=== PATIENT | female | born 1990 | race African-American/Black ===

== ENCOUNTER 2017-02-21 00:39 | Emergency (ER) | payer BC, OTHER | END 2017-02-21 01:03 | disposition home or self-care (01) | LOC: ERS 00:39 | DX: H66.92 Otitis media, unspecified, left ear (principal); I10 Essential (primary) hypertension; J45.909 Unspecified asthma, uncomplicated | CPT/HCPCS: 99282 ==

== ENCOUNTER 2019-03-24 12:43 | Emergency (ER) | payer BC ==
[2019-03-24] MEDS ORDERED: Acetaminophen 500 MG TAB ONE (13:34)
[2019-03-24 17:45] LABS: #Basophils 0.1 thou/uL (0.0-0.2); #Eosinphils 0.1 thou/uL (0.0-0.7); #Lymphocytes 0.6 thou/uL (1.20-3.40); #Monocytes 0.5 thou/uL (0.11-0.59); #Neutrophils 3.3 thou/uL (1.40-6.50); %Basophils 1.3 % (0.0-1.0); %Eosinophils 1.7 % (0.0-10.0); %Lymphocytes 12.2 % (21.0-51.0); %Monocytes 11.3 % (0.0-10.0); %Neutrophils 73.6 % (42.0-75.0); Mean Corpuscular HGB CONC 33.5 g/dL (32.0-36.0); Mean Corpuscular Hemoglobin 25.6 pg (27.0-31.0); Mean Corpuscular Volume 76.6 fL (78.0-98.0); Mean Platelet Volume 9.6 fL (7.4-10.4); Platelet Count 143 thou/uL (130-400); RBC Distribution Width 14.8 % (11.5-14.5); White Blood Cell (WBC) Count 4.5 thou/uL (4.8-10.8)
[2019-03-24 17:47] LABS: Bacteria/HPF 1+ HPF (None Seen); Bilirubin Negative (Negative); Clarity Clear (Clear); Glucose, Urine (Dipstick) Normal (Negative); Leukocyte 25 Leu/uL (Negative); Nitrite Negative (Negative); Protein, Urine (Dipstick) 300 mg/dL (Neg-Trace); Squamous Epithelial 0-3 HPF (0-3); Urobilinogen Normal mg/dL (Less than 2); WBC/HPF 0-3 HPF (0-3)
[2019-03-24 17:49] LABS: ALT (SGPT) 12 U/L (8-55); AST (SGOT) 26 U/L (5-34); Albumin 2.6 g/dL (3.5-5.0); Alkaline Phosphatase 66 U/L (40-110); Anion Gap 13 mmol/L (10-20); BUN (Urea Nitrogen) Less than 4 mg/dL (7.0-18.7); Bilirubin, Total 0.2 mg/dL (0.2-1.2); Calc. Creatinine Clearance 0 mL/min (70-130); Calcium 7.7 mg/dL (7.8-10.44); Carbon Dioxide 21 mmol/L (22-29); Chloride 106 mmol/L (98-107); Estimated GFR-MDRD Greater than 90; Globulin 3.1 g/dL (2.4-3.5); Glucose 82 mg/dL (70-105); Potassium 3.4 mmol/L (3.5-5.1); Protein, Total 5.7 g/dL (6.0-8.3); Sodium 137 mmol/L (136-145)
[2019-03-24 17:56] LABS: Blood, Urine 1+ (Negative)
[2019-03-24] MEDS ORDERED: Levalbuterol HCl 0.63 MG/3 ML NEB NEB SCH (20:30)
[2019-03-24] MEDS ORDERED: hydrALAZINE 20 MG/ML VIAL SLOW IVP PRN (20:34)
== END 2019-03-24 19:02 | disposition home or self-care (01) ==
LOC: ERS 12:43
DX: O99.513 Diseases of the respiratory system complicating pregnancy, third trimester (principal); J06.9 Acute upper respiratory infection, unspecified; Z3A.32 32 weeks gestation of pregnancy; J45.909 Unspecified asthma, uncomplicated
CPT/HCPCS: 80053; 81003; 81015; 85025; 87804; 96360; J7614

== ENCOUNTER → 2019-03-24 | Day surgery (SDC) | payer BC, OTHER ==
[~2019-03-24] MED LIST: FLU VACC QS2019-20(6MOS UP)/PF 60 MCG/0.5 ML SYRINGE IM ONE; Levalbuterol HCl 0.63 MG/3 ML NEB NEB SCH; hydrALAZINE 20 MG/ML VIAL SLOW IVP PRN
--- NOTE | 2019-03-24 22:10 | RAD ---
XR Chest Pa Lat STANDARD HISTORY: Shortness of breath COMPARISON: None. FINDINGS: Heart size and mediastinum are within normal limits. The lungs are clear of infiltrates. No significant bony findings. IMPRESSION: No active intrathoracic disease.
[2019-03-24 22:19] VITALS: BP 145/77; TEMP 99.9; BMI 32.3
--- NOTE | 2019-03-25 08:45 | PRG ---
DATE OF SERVICE: 03/24/2019 PRIMARY OB: Dr. Russell Erickson. CHIEF COMPLAINT: Elevated blood pressure, proteinuria, and tachycardia. HISTORY OF PRESENT ILLNESS: The patient is a 29-year-old, G8, P4 female with an intrauterine at 32 weeks and a day, presenting to the emergency room with complaints of congestion, headache, and sore throat for 3 days with vomiting last week. After evaluation there, the patient was noted to have tachycardia, intermittent headache, congestion, and sore throat, and noted to have an elevated temperature at 99.6 and pulse in the 120s. The patient was diagnosed with an upper respiratory infection and sent to Labor and Delivery for monitoring. Upon arrival, the patient again reported that she was not feeling well, had sore throat, and congestion and cough that she has been treating with [id number] medications. For the last few days, the patient also reports that she had been given antibiotics in the last few weeks for strep throat that she works in a cold environment at [employer]. During her stay, she reports that she does have history of asthma and has some difficulty breathing at times since getting sick. The ER physician had prescribed her albuterol downstairs and gave her a liter of fluid. The patient denies chest pain. She denies nausea, vomiting, diarrhea, constipation, hip problems, knee problems, muscle weakness. The patient reports she is determined to go to work tomorrow. The patient denies any drug use. Denies any caffeine consumption of any kind. Denies coffee or sodas or other sources of caffeine or stimulants. PAST MEDICAL HISTORY: Asthma and suspected chronic hypertension. PAST SURGICAL HISTORY: Negative. SOCIAL HISTORY: Denies drug, alcohol, or tobacco use. ALLERGIES: NONE. CURRENT MEDICATIONS: Just newly prescribed albuterol inhaler and vitamins. OB LABS: Unavailable at the time of dictation. REVIEW OF SYSTEMS: Per HPI. PHYSICAL EXAMINATION: VITAL SIGNS: Initial blood pressure is 145/77, her stay with us 3 hours repeat blood pressures 133/87, 126/66. 140/80 and 135/75 were her most recent blood pressure. The patient had a temperature of 101.1 during her stay. Remained tachycardic in the 120s, down to the one teens and up to the lower 130s, saturating 99% to 100% on room air. GENERAL: The patient initially appeared to have to be somewhat lethargic, though alert and oriented. Cooperative and pleasant to interact with. HEAD: Normocephalic and atraumatic. LUNGS: Had some wheezing and some coarse breath sounds. HEART: Tachycardic, but regular rhythm. ABDOMEN: Soft. No right upper quadrant tenderness. EXTREMITIES: Nontender. They had minimal edema. Symmetrical. The fetus had a baseline in the 150s with moderate long-term variability, positive accelerations, no decelerations. Tocometer free of contractions. LAB WORK: White count of 4.5, hemoglobin 10, hematocrit 29.9, platelets 143,000. Sodium 137, potassium 3.4, BUN of less than 4, creatinine of 0.56, calcium of 7.7. AST is 26, ALT of 12, albumin of 2.6. Urine specific gravity 1.009 with 300 of protein, 20 of ketones, 1+ blood, 4 to 6 rbc's, 1+ bacteria. Influenza type A and B are negative. Chest x-ray showed a heart size and mediastinum within normal limits. Lungs are clear of infiltrates. No significant bony findings and no active intrathoracic disease. ASSESSMENT AND PLAN: The patient is a 29-year-old female with what appears to be a viral respiratory infection exacerbated by underlying asthma. During her stay here, the patient was given a Xopenex treatment after which the patient reports that she is able to breathe more easily. With her being febrile and , her tachycardia is less concerning. She has a suppressed white count also suggesting a viral infection of some kind. The patient has been given instructions to seek medical attention should she experience worsening shortness of breath or chest pain. I have contacted her primary OB, Dr. Erickson, who has shared that her proteinuria and elevated blood pressures have been present since before 20 weeks and suspect that she has baseline proteinuria with chronic hypertension. Her stay here between the ER and the [employer] Labor and Delivery visit has been in excess of 8 hours and reviewing her course of vital signs, nothing appeared to worsen over that time. The patient is comfortable going home. In fact, she was comfortable walking out the door. She has an appointment to see her primary OB Dr. Russell Erickson tomorrow 4:30, who can re-evaluate her situation. The patient is expressed determination to go to work. We had recommended that she not given her fever and body aches and upper respiratory infection, fetus has a category 1 tracing and the patient has been given precautions. Job ID: [id number]
== END ==
LOC: L&D/OP 19:20
PROVIDERS: ATTEND Obstetrics & Gynecology
DX: O99.89 Other specified diseases and conditions complicating pregnancy, childbirth and the puerperium (principal); R03.0 Elevated blood-pressure reading, without diagnosis of hypertension; O99.513 Diseases of the respiratory system complicating pregnancy, third trimester; J45.909 Unspecified asthma, uncomplicated; O12.13 Gestational proteinuria, third trimester; O99.213 Obesity complicating pregnancy, third trimester; E66.9 Obesity, unspecified; O09.293 Supervision of pregnancy with other poor reproductive or obstetric history, third trimester; Z3A.32 32 weeks gestation of pregnancy
CPT/HCPCS: 71046; 94640; 99282; J7614

== ENCOUNTER 2019-04-25 16:11 | Day surgery (SDC) | payer BC, OTHER ==
[2019-04-25 16:49] VITALS: BMI 33.8
[2019-04-25] MEDS ORDERED: hydrALAZINE 20 MG/ML VIAL SLOW IVP PRN (16:52)
--- NOTE | 2019-04-25 17:04 | PDOC.LDHP ---
Labor and Delivery H&P Chief complaint: other (4/8 BPP in clinic with diagnosis of Chronic Hypertension and Chronic (it seems) proteinurea. No evidence that preeclamsia has existed upto this point, with normal blooed work previously, and no otehr severe features today.) HPI: 29 y/o at 36 weeks and 4 days, with 4/8 BPP in clinic. She presents to L&D for further evaluation for well being and to re-investigate for any laboratory evidence of preeclampsia. Grav: 8 Para: 4 Current complications: gestational hypertension, other (Chronic Proteinurea) Abnormal US findings: Yes (4/8 BPP today in clinic, but 8/8 on repeat exam in hospital. NL ЕКАТЕРИНА.) Current medications: pre-emery vitamins Allergies/Adverse Reactions: Allergies Allergy/AdvReac Type Severity Reaction Status Date / Time No Known Allergies Allergy Verified 04/25/19 16:50 - Physical Exam Vital signs reviewed and normal: yes General: NAD Heart: RRR Lungs: CTAB Abdomen: gravid Extremeties: no edema FHT: category 1 - Assessment GHTN, now with 8/8 BPP and NL heart tracing. Neg Preeclamsia blood work- up. Urine protein to creatinine ration is high as expected, explained by chronic proteinurea that has been monitored and evident for several months no without significant change or progression. At this time, the best explanation of the clinical picture is CHTN, without superimposed preeclampsia. Delivery indicated at 38 weeks per ACOG and already scheduled.
--- NOTE | 2019-04-25 17:24 | ULT ---
Exam: NONSTRESS BIOPHYSICAL PROFILE: HISTORY: Poor status 36 weeks . Chronic hypertension. TECHNIQUE: Nonstress biophysical profile was performed. FINDINGS: Limited evaluation of the cervix due to shadowing. Vertex presentation Posterior placenta. The presence or absence of previa cannot be evaluated due to shadowing in the low er uterine segment. heart tones: 136 bpm Amniotic fluid index 10.7 cm Nonstress biophysical profile: tone 2 breathing 2 movement 2 Amniotic fluid 2 Total score 8 out of 8 IMPRESSION: Nonstress biophysical profile with a total score of 8 out of 8. Transcribed Date/Time: 04/25/2019 6:20 PM
[2019-04-25 18:03] LABS: #Basophils 0.1 thou/uL (0.0-0.2); #Eosinphils 0.3 thou/uL (0.0-0.7); #Lymphocytes 1.6 thou/uL (1.20-3.40); #Monocytes 0.7 thou/uL (0.11-0.59); #Neutrophils 5.5 thou/uL (1.40-6.50); %Basophils 1.2 % (0.0-1.0); %Eosinophils 3.8 % (0.0-10.0); %Lymphocytes 19.1 % (21.0-51.0); %Monocytes 8.4 % (0.0-10.0); %Neutrophils 67.5 % (42.0-75.0); Hemoglobin 10.4 g/dL (12.0-16.0); Mean Corpuscular HGB CONC 32.2 g/dL (32.0-36.0); Mean Corpuscular Hemoglobin 24.6 pg (27.0-31.0); Mean Corpuscular Volume 76.6 fL (78.0-98.0); Mean Platelet Volume 9.1 fL (7.4-10.4); Platelet Count 177 thou/uL (130-400); RBC Distribution Width 16.9 % (11.5-14.5); Red Blood Cell (RBC) Count 4.23 mill/uL (4.20-5.40); White Blood Cell (WBC) Count 8.1 thou/uL (4.8-10.8)
[2019-04-25 18:29] LABS: Creatinine, Urine 64.72 mg/dL (47-110)
[2019-04-25 18:42] LABS: ALT (SGPT) Less than 7 U/L (8-55); Albumin 2.8 g/dL (3.5-5.0); Alkaline Phosphatase 105 U/L (40-110); Calc. Creatinine Clearance 209 mL/min (70-130); Chloride 105 mmol/L (98-107); Estimated GFR-MDRD Greater than 90; Globulin 3.5 g/dL (2.4-3.5); Potassium 3.5 mmol/L (3.5-5.1); Protein, Total 6.3 g/dL (6.0-8.3); Sodium 137 mmol/L (136-145)
[2019-04-25 18:51] LABS: AST (SGOT) 15 U/L (5-34); Anion Gap 10 mmol/L (10-20); BUN (Urea Nitrogen) 5 mg/dL (7.0-18.7); Bilirubin, Total 0.3 mg/dL (0.2-1.2); Calcium 8.5 mg/dL (7.8-10.44); Carbon Dioxide 25 mmol/L (22-29); Glucose 62 mg/dL (70-105)
[2019-04-26] MEDS ORDERED: FLU VACC QS2019-20(6MOS UP)/PF 60 MCG/0.5 ML SYRINGE IM ONE (09:00)
== END 2019-04-25 19:30 | disposition home or self-care (01) ==
LOC: L&D/OP 16:11
PROVIDERS: ATTEND Obstetrics & Gynecology
DX: O10.913 Unspecified pre-existing hypertension complicating pregnancy, third trimester (principal); Z3A.36 36 weeks gestation of pregnancy
CPT/HCPCS: 36415; 76819; 80053; 82570; 84156; 85025; 99284

== ENCOUNTER 2019-05-06 19:15 | Inpatient (IN) | payer BC, OTHER ==
--- NOTE | 2019-05-06 18:27 | PDOC.LDHP ---
Labor and Delivery H&P Chief complaint: scheduled induction HPI: 29 y/o G8 P 4034 at 38 and 1/7 weeks presents for term medical induction of labor for CHTN and chronic Proteinurea. Current gestational age (weeks): 38 Due date: 05/19/19 Grav: 8 Para: 4 Current complications: hypertension, other (Proteinurea) Abnormal US findings: No Current medications: pre-emery vitamins Allergies/Adverse Reactions: Allergies Allergy/AdvReac Type Severity Reaction Status Date / Time No Known Allergies Allergy Verified 04/25/19 16:50 Social history: none - Physical Exam Vital signs reviewed and normal: yes General: NAD Heart: RRR Lungs: CTAB Abdomen: gravid Extremeties: no edema FHT: category 1 - Assessment L&D Assessment: medically indicated induction - Plan Plan: admit to L&D, cervical ripening
[~2019-05-06 19:15] MED LIST changes: +Acetaminophen 500 MG TAB PO PRN; +Butorphanol Tartrate 1 MG/ML VIAL SLOW IVP PRN; +Carboprost 250 MCG/ML AMP IM PRN; +Diphenoxylate HCl/Atropine Tablet PO PRN; -FLU VACC QS2019-20(6MOS UP)/PF 60 MCG/0.5 ML SYRINGE IM ONE; +HYDROcodone/Acetaminophen 5/325 mg Tablet PO PRN; +Ibuprofen 800 MG TAB PO PRN; -Levalbuterol HCl 0.63 MG/3 ML NEB NEB SCH; +Lidocaine 1% (PF) 30 ML VIAL SC PRN; +Misoprostol 200 MCG TAB PR PRN; +NS / Oxytocin 40 units/1000ml 1,000 ML IV PRN; +NS w/ Oxytocin 10 units 500 ML IV SCH; +Ondansetron PF 4 MG/2 ML Vial IVP PRN; +Penicillin G Potassium 5 MILL.UNITS in Sodium Chloride 0.9% 100 ML IVPB SCH; +Promethazine HCl 25 MG/ML VIAL IM PRN
[2019-05-06 22:39] VITALS: BMI 33.0
[2019-05-06] MEDS: Lactated Ringer's 1,000 ML IV SCH (23:08)
[2019-05-06] MEDS: Misoprostol 100 MCG TAB VAG SCH ×2 (23:09→23:48)
[2019-05-06 23:11] LABS: Hemoglobin 9.7 g/dL (12.0-16.0); Mean Corpuscular HGB CONC 32.7 g/dL (32.0-36.0); Mean Corpuscular Hemoglobin 24.7 pg (27.0-31.0); Mean Corpuscular Volume 75.6 fL (78.0-98.0); Mean Platelet Volume 8.3 fL (7.4-10.4); Platelet Count 254 thou/uL (130-400); RBC Distribution Width 16.6 % (11.5-14.5); Red Blood Cell (RBC) Count 3.94 mill/uL (4.20-5.40); White Blood Cell (WBC) Count 8.5 thou/uL (4.8-10.8)
[2019-05-06 23:33] LABS: ALT (SGPT) 7 U/L (8-55); AST (SGOT) 14 U/L (5-34); Albumin 2.8 g/dL (3.5-5.0); Alkaline Phosphatase 107 U/L (40-110); Anion Gap 9 mmol/L (10-20); BUN (Urea Nitrogen) 5 mg/dL (7.0-18.7); Bilirubin, Total 0.3 mg/dL (0.2-1.2); Calc. Creatinine Clearance 204 mL/min (70-130); Calcium 8.3 mg/dL (7.8-10.44); Carbon Dioxide 27 mmol/L (22-29); Chloride 105 mmol/L (98-107); Estimated GFR-MDRD Greater than 90; Globulin 2.9 g/dL (2.4-3.5); Glucose 77 mg/dL (70-105); Potassium 3.9 mmol/L (3.5-5.1); Protein, Total 5.7 g/dL (6.0-8.3); Sodium 137 mmol/L (136-145)
[2019-05-06 23:46] LABS: Syphilis Antibody Nonreactive (Nonreactive); Syphilis Antibody Index 0.03 S/CO (<1.00 Non-Reactive)
[2019-05-06] MEDS: NS w/ Oxytocin 10 units 500 ML IV SCH (23:48)
[2019-05-06] MEDS: Penicillin G 2.5 MILL.units 2.5 MILL.UNITS in Premix Bag 1 BAG IVPB SCH (23:48)
[2019-05-07 00:01] LABS: HBSAg Index 0.19 S/CO (0-0.99); Hep B Surf Ag Non-Reactive S/CO (NonReactive)
[2019-05-07] MEDS: Penicillin G 2.5 MILL.units 2.5 MILL.UNITS in Premix Bag 1 BAG IVPB SCH ×3 (03:01→11:23)
[2019-05-07] MEDS: Misoprostol 100 MCG TAB VAG SCH ×3 (03:01→19:18)
[2019-05-07] MEDS: Lactated Ringer's 1,000 ML IV SCH ×2 (11:21→19:18)
[2019-05-07] MEDS: NS w/ Oxytocin 10 units 500 ML IV SCH (11:22)
[2019-05-07] MEDS ORDERED: Tranexamic Acid 1,000 MG in Sodium Chloride 0.9% 100 ML IVP SCH ×2 (13:00→14:15)
[2019-05-07] MEDS: NS / Oxytocin 40 units/1000ml 1,000 ML IV SCH ×2 (13:05→16:00)
[2019-05-07] MEDS ORDERED: Tranexamic Acid 1,000 MG/10 ML VIAL ONE ×2 (13:29→13:58)
[2019-05-07] MEDS ORDERED: Milk Of Magnesia 30 ML UDCUP PO PRN (13:54)
[2019-05-07] MEDS ORDERED: Benzocaine-Menthol 82.5 ML CAN TOP PRN (13:54)
[2019-05-07] MEDS ORDERED: Bisacodyl 10 MG SUPP PR PRN (13:54)
[2019-05-07] MEDS ORDERED: Lanolin Ointment 7 GM TUBE TOP PRN (13:54)
[2019-05-07] MEDS ORDERED: diphenhydrAMINE 25 MG CAP PO PRN (13:54)
[2019-05-07] MEDS ORDERED: Varicella virus, LIVE 0.5 ML VIAL SC ONE (13:54)
[2019-05-07] MEDS ORDERED: HYDROcodone/Acetaminophen 5/325 mg Tablet PO PRN (13:54)
[2019-05-07] MEDS ORDERED: Zolpidem Tartrate 5 MG TAB PO PRN (13:54)
[2019-05-07] MEDS ORDERED: Preparation H Ointment 28 GM TUBE PR PRN (13:54)
[2019-05-07] MEDS ORDERED: Promethazine HCl 25 MG/ML VIAL IM PRN (13:54)
[2019-05-07] MEDS ORDERED: hydrALAZINE 20 MG/ML VIAL SLOW IVP PRN (13:54)
[2019-05-07] MEDS ORDERED: Ondansetron PF 4 MG/2 ML Vial IVP PRN (13:54)
[2019-05-07] MEDS ORDERED: Measles/Mumps/Rubella 10 MCG/0.5 ML VIAL SC ONE (13:54)
[2019-05-07] MEDS ORDERED: Misoprostol 200 MCG TAB ONE (14:12)
[2019-05-07] MEDS ORDERED: Misoprostol 200 MCG TAB PO SCH (14:12)
[2019-05-07] MEDS ORDERED: Butorphanol Tartrate 1 MG/ML VIAL SLOW IVP SCH (14:13)
[2019-05-07] MEDS ORDERED: Butorphanol Tartrate 1 MG/ML VIAL ONE (14:14)
[2019-05-07] MEDS: HYDROcodone/Acetaminophen 5/325 mg Tablet PO PRN ×2 (15:11→19:41)
[2019-05-07 16:18] LABS: #Basophils 0.1 thou/uL (0.0-0.2); #Eosinphils 0.1 thou/uL (0.0-0.7); #Monocytes 0.6 thou/uL (0.11-0.59); #Neutrophils 11.2 thou/uL (1.40-6.50); %Basophils 0.6 % (0.0-1.0); %Eosinophils 0.6 % (0.0-10.0); %Monocytes 4.3 % (0.0-10.0); %Neutrophils 86.5 % (42.0-75.0); Hemoglobin 9.6 g/dL (12.0-16.0); Mean Corpuscular HGB CONC 32.2 g/dL (32.0-36.0); Mean Corpuscular Hemoglobin 24.3 pg (27.0-31.0); Mean Corpuscular Volume 75.7 fL (78.0-98.0); Mean Platelet Volume 8.5 fL (7.4-10.4); Platelet Count 233 thou/uL (130-400); RBC Distribution Width 16.4 % (11.5-14.5); Red Blood Cell (RBC) Count 3.93 mill/uL (4.20-5.40); White Blood Cell (WBC) Count 12.9 thou/uL (4.8-10.8)
[2019-05-07] MEDS: Ibuprofen 800 MG TAB PO SCH ×2 (17:33→20:51)
[2019-05-07] MEDS: Ferrous Sulfate 325 MG TAB PO SCH (19:17)
[2019-05-07] MEDS: Docusate Calcium (SURFAK) 240 MG CAP PO SCH (20:51)
[2019-05-07] MEDS: Adacel (T-DAP) 0.5 ML SYRINGE IM ONE (21:31)
[2019-05-08] MEDS: Ibuprofen 800 MG TAB PO SCH ×2 (05:12→13:57)
[2019-05-08] MEDS: Docusate Calcium (SURFAK) 240 MG CAP PO SCH (07:42)
[2019-05-08] MEDS: Ferrous Sulfate 325 MG TAB PO SCH (07:42)
[2019-05-08] MEDS: HYDROcodone/Acetaminophen 5/325 mg Tablet PO PRN (07:43)
[2019-05-08 08:39] LABS: Mean Corpuscular HGB CONC 32.8 g/dL (32.0-36.0); Mean Platelet Volume 7.7 fL (7.4-10.4); Platelet Count 233 thou/uL (130-400); RBC Distribution Width 16.6 % (11.5-14.5); Red Blood Cell (RBC) Count 3.59 mill/uL (4.20-5.40); White Blood Cell (WBC) Count 10.1 thou/uL (4.8-10.8)
[2019-05-08] MEDS ORDERED: Prenatal Vitamin 1 TAB PO SCH (09:00)
[2019-05-08 11:43] VITALS: TEMP 98.8
[2019-05-08 12:49] VITALS: BP 133/83
--- NOTE | 2019-05-08 13:46 | PDOC.PP ---
Post Progress Note Post Day #: 1 PO intake tolerated: yes Flatus: yes Ambulation: yes Vital Signs (12 hours) Temp Pulse Resp BP Pulse Ox 05/08/19 12:45 74 20 133/83 05/08/19 11:30 98.8 F 94 18 157/94 H 05/08/19 07:35 98.0 F 79 20 136/97 H 95 05/08/19 05:10 98.9 F 86 16 143/65 H Weight Weight 211 lb - Physical Examination General: NAD Cardiovascular: no m/r/g, RRR Respiratory: clear to auscultation bilaterally Abdominal: + bowel sounds, lochia, no distention Extremities: negative homans (B) Skin: CS incision dry & intact, no rash Neurological: no gross focal deficits Psychiatric: A&Ox3, normal affect Result Diagrams: 05/08/19 08:22 05/06/19 22:59 Additional Labs: Post Labs Blood Type AB POSITIVE 05/06/19 23:00 Hep Bs Antigen Non-Reactive S/CO (NonReactive) 05/06/19 22:59
[2019-05-08] MEDS: Adacel (T-DAP) 0.5 ML SYRINGE IM ONE (14:51)
== END 2019-05-08 16:40 | disposition home or self-care (01) | DRG 807 ==
LOC: L&D 21:53 → 3SW 05-07 19:27
PROVIDERS: ADMIT Obstetrics & Gynecology; ATTEND Obstetrics & Gynecology
PROC: 10E0XZZ Delivery of Products of Conception, External Approach (ICD-10-PCS; principal; 2019-05-06)
PROC: 3E0P7VZ Introduction of Hormone into Female Reproductive, Via Natural or Artificial Opening (ICD-10-PCS; 2019-05-06)
PROC: 3E033VJ Introduction of Other Hormone into Peripheral Vein, Percutaneous Approach (ICD-10-PCS; 2019-05-06)
PROC: 3E0234Z Introduction of Serum, Toxoid and Vaccine into Muscle, Percutaneous Approach (ICD-10-PCS; 2019-05-06)
DX: O13.4 Gestational [pregnancy-induced] hypertension without significant proteinuria, complicating childbirth (principal); Z37.0 Single live birth; Z3A.38 38 weeks gestation of pregnancy; Z23 Encounter for immunization
CPT/HCPCS: 36415; 36416; 80053; 85025; 85027; 86780; 86850; 86900; 86901; 87340; 90715; J0595; J2540; J2590; J3490

== ENCOUNTER 2019-11-01 07:54 | Day surgery (SDC) | payer BC, OTHER ==
[2019-11-01 08:12] LABS: INR-International Normal Ratio 0.9; Prothrombin Time 11.9 sec (12.0-14.7)
[2019-11-01 09:19] VITALS: BMI 28.6
[2019-11-01 09:24] VITALS: BP 119/89; TEMP 98.3
--- NOTE | 2019-11-01 13:32 | CT ---
CT-guided renal biopsy random: 11/01/2019 HISTORY: 29-year-old female with proteinuria. TECHNIQUE: Signed informed consent obtained. Patient placed prone on CT table. Procedure performed under step CT guidance. Right renal lower pole selected as target. Overlying right flank skin prepared and draped in usual sterile fashion. 25-gauge needle used to apply buffered lidocaine superficially. 17-g auge introducer needle advanced to junction between right posterior lateral abdominal wall musculature and posterior paraspinal musculature. Buffered lidocaine applied into this region through the introducer needle. Introducer needle further advanced to posterior aspect of left perirenal space. Additional buffered lidocaine applied here. 18-gauge biopsy needle advanced in coaxial fashion through the introducer needle. Biopsy gun fired, yielding a approximately 1.3 cm renal core tissue sample, which was given to Dr. Oro of pathology, who performed a preliminary light microscopy curly lysis. Some glomeruli visualized. Another 18-gauge pass with biopsy needle performed, and this second tissue sample was placed directly into saline. Introducer needle removed. Abdomen scanned with patient supine. [address] abdomen performed. Patient tolerated procedure well. No complications. FINDINGS: Step CT image demonstrates introducer needle tip at posterior surface of the lower pole of left kidne y. Adjacent fat stranding around the tip of needle represents injected lidocaine. Both the immediate and delayed post procedure images demonstrate no hemorrhage at all. IMPRESSION: Technically successful CT-guided random biopsy of left kidney yielding 18-gauge 1.3 cm core tissue sa mples x2.
== END 2019-11-01 13:40 | disposition home or self-care (01) ==
LOC: CT 07:54
PROVIDERS: ATTEND Internal Medicine Nephrology
PROC: BT22ZZZ Computerized Tomography (CT Scan) of Left Kidney (ICD-10-PCS; principal; 2019-11-01)
PROC: 0TB13ZX Excision of Left Kidney, Percutaneous Approach, Diagnostic (ICD-10-PCS; principal; 2019-11-01)
DX: N06.1 Isolated proteinuria with focal and segmental glomerular lesions (principal); N18.1 Chronic kidney disease, stage 1; I15.9 Secondary hypertension, unspecified; E55.9 Vitamin D deficiency, unspecified; J45.909 Unspecified asthma, uncomplicated; Z79.899 Other long term (current) drug therapy
CPT/HCPCS: 50200; 77002; 85610; 88329

== ENCOUNTER 2022-07-28 14:31 | Emergency (ER) | payer BC, OTHER ==
[2022-07-28 16:04] LABS: #Eosinphils 0.4 thou/uL (0.0-0.7); #Lymphocytes 1.8 thou/uL (1.20-3.40); #Monocytes 0.4 thou/uL (0.11-0.59); #Neutrophils 3.4 thou/uL (1.40-6.50); %Basophils 0.6 % (0.0-1.0); %Eosinophils 7.5 % (0.0-10.0); %Lymphocytes 29.1 % (21.0-51.0); %Monocytes 6.1 % (0.0-10.0); %Neutrophils 56.7 % (42.0-75.0); Hemoglobin 10.8 g/dL (12.0-16.0); Mean Corpuscular HGB CONC 33.4 g/dL (32.0-36.0); Mean Corpuscular Hemoglobin 27.2 pg (27.0-31.0); Mean Corpuscular Volume 81.4 fl (78.0-98.0); Mean Platelet Volume 8.2 fL (7.4-10.4); Platelet Count 254 10x3/uL (130-400); RBC Distribution Width 13.9 % (11.5-14.5); Red Blood Cell (RBC) Count 3.97 mill/uL (4.20-5.40)
[2022-07-28 16:08] LABS: Bacteria/HPF None Seen HPF (None Seen); Bilirubin Negative (Negative); Blood, Urine 3+ (Negative); Clarity Clear (Clear); Glucose, Urine (Dipstick) Normal (Negative); Ketone, Urine Negative (Negative); Leukocyte Negative Leu/uL (Negative); Nitrite Negative (Negative); Protein, Urine (Dipstick) 100 mg/dL (Neg-Trace); RBC/HPF Greater than 50 HPF (0-3); Specific Gravity, Urine 1.014 (1.002-1.036); Squamous Epithelial 0-3 HPF (0-3); Urobilinogen Normal mg/dL (Less than 2); WBC/HPF 0-3 HPF (0-3)
[2022-07-28 16:14] LABS: BHCG - Serum Negative (NEGATIVE); Pregs Control Background? CLEAR/WHITE (CLR/WHITE); Pregs Control Bar Appear? YES (CONTROL BAR)
[2022-07-28 16:24] LABS: ALT (SGPT) 14 U/L (8-55); AST (SGOT) 19 U/L (5-34); Albumin 2.4 g/dL (3.5-5.0); Alkaline Phosphatase 69 U/L (40-110); Anion Gap 11 mmol/L (10-20); BUN (Urea Nitrogen) 8 mg/dL (7.0-18.7); Bilirubin, Total 0.2 mg/dL (0.2-1.2); Calc. Creatinine Clearance 0 mL/min (70-130); Calcium 8.4 mg/dL (7.8-10.44); Carbon Dioxide 24 mmol/L (22-29); Chloride 106 mmol/L (98-107); Estimated GFR 117; Globulin 2.8 g/dL (2.4-3.5); Glucose 94 mg/dL (70-105); Protein, Total 5.2 g/dL (6.0-8.3); Sodium 137 mmol/L (136-145)
[2022-07-28] MEDS ORDERED: Furosemide 40 MG TAB ONE (17:45)
== END 2022-07-28 17:50 | disposition home or self-care (01) ==
LOC: ERS 14:31
DX: M79.89 Other specified soft tissue disorders (principal); N04.1 Nephrotic syndrome with focal and segmental glomerular lesions; I10 Essential (primary) hypertension
CPT/HCPCS: 36415; 80053; 81003; 81015; 84703; 85025; 93005